=== PATIENT | female | born 1990 | race African-American/Black ===

== ENCOUNTER → 2024-01-29 10:36 | Outpatient (CLI) | payer OTHER, SELFPAY ==
--- NOTE | 2024-01-29 10:39 | DI.CT.S_ITS ---
PROCEDURE: CT SOFT TISSUE NECK W CON INDICATIONS: THROAT PAIN,DYSPHAGIA/THROAT SWELLING TECHNIQUE: After the administration of intravenous contrast, 3.0 mm axial sections acquired from the sella to the aortic arch. Additional oblique axial 3.0 mm sections acquired through the pharynx. 3 mm thick coronal and sagittal reformats were generated. For radiation dose reduction, the following was used: automated exposure control. COMPARISON: None. FINDINGS: Image quality: Excellent. Lymph nodes: No enlarged lymph nodes seen throughout the neck. Vessels: Visualized vasculature appears patent. Neck spaces: The oropharynx, nasopharynx, and pharynx demonstrate no mucosal lesions. The vocal cords, false vocal cords, pyriform sinuses, epiglottis, vallecula, and tongue base all appear normal. Extramucosal spaces appear unremarkable. Glands: The parotid and submandibular glands appear normal. Thyroid gland is unremarkable. Miscellaneous: Visualized brain and orbits appear normal. Lung apices appear clear. Superficial soft tissues appear normal. Bones: No suspicious bony lesions. Visualized sinuses and mastoids appear unremarkable. IMPRESSION: Unremarkable exam. Dictated by: Megan Almeida M.D. on 01/29/2024 at 16:28 Approved by: Megan Almeida M.D. on 01/29/2024 at 16:37
--- NOTE | 2024-01-29 16:12 | ST.SWALLOW ---
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 Pt reported that she noticed swallowing difficulty following facial injections ( cheeks, chin, lips) of botox and filler. Additionally, she had strep throat, gall bladder removal, lymph node infections and COVID, which seemed to maker her swallowing symptoms worsen. She mentioned having Epstien-Nava infection as well . Pt reports her swallowing is weaker and that her throat muscles fatigue easily, needing increased effort to swallow. She described needing multiple swallows per bite in order to get her food down Pt stated she has choked multiple times and now cuts foods into tiny pieces and chews for a long time. She avoids foods like steak, breads, pancakes, etc. Pt reported that ijn addition to her throat muscles fatiguing rapidly, she is experiencing hand skaking and weakness ( My hands do not work anymore). She noted she cannot write well anymore and that her typing is very slow. Subjective Observations Pt was seated in the fluoroscopy chair with directions and procedures described for her. She indicated she understood and agreed to proceed. Patient Positioning Position View Lat-A/P Imaging Lateral View Textures Administered Trials Presented Thin Liquid via Spoon (IDDSI 0 ),Thin Liquid via Cup (IDDSI 0 ),Extremely Thick Liquid via Spoon (IDDSI 4),Soft & Bite- sized (IDDSI,Regular (IDDSI 7) Barium Tablet Yes The IDDSI Framework Protocol: IDDSI.1 Oral Impairment Source: The Modified Barium Swallow Impairment Profile (MBSImP??) Lip Closure No labial escape Tongue Control During Bolus Hold Cohesive bolus between tongue to palatal seal Bolus Preparation/Mastication Timely & efficient chewing & mashing Bolus Transport/Lingual Motion Brisk tongue motion Oral Residue Complete oral clearance Initiation of Pharyngeal Swallow Bolus head in valleculae Additional Oral Impairment Observations *OME indicated natural dentition in good hygiene. Labial, velar and facial structures were noted to be WNL. Lingual protrusion demonstrated muscle fasciculation along lateral edges and the anterior tongue body. At rest, the fasciculation were not observed. Pt noted that although she was able to perform OME movements , she felt that she performed them slower than was normal for her and that it took effort to execute the movements. *DKS was observed to be WNL. *Dentition natural and in good hygiene *Mastication observed with rotary chew pattern. *Good bolus formation, control and AP transition. Pharyngeal Impairment Source: The Modified Barium Swallow Impairment Profile (MBSImP??) Soft Palate Elevation No bolus between soft palate & pharyngeal wall Laryngeal Elevation Comp.sup.move.thyroid cart.w/ comp.approx.arytenoids to epiglot petiole Anterior Hyoid Excursion Complete anterior movement Epiglottic Movement Complete inversion Laryngeal Vestibular Closure Complete; no air/contrast in laryngeal vestibule Pharyngeal Stripping Wave Present - complete Pharyngoesophageal Segment Opening Complete distention & complete duration; no obstruction of flow Tongue Base Retraction No contrast between tongue base & posterior pharyngeal wall Pharyngeal Residue Complete pharyngeal clearance Location Pharyngeal wall Additional Pharyngeal Impairment *Pharyngeal phase of swallow Observations observed to be WNL *Pt reported that after 10 swallow trials, her throat muscles felt exhausted. She further stated that usually, at this point when eating, she will stop eating as it becomes too hard A/P View Textures Administered Trials Presented Thin Liquid via Cup (IDDSI 0) The IDDSI Framework Protocol: IDDSI.1 A/P View Observations Pharyngeal Contraction Complete Esophageal Clearance Upright Position Esophageal retention Esophageal Function Slowed Clearing,Stasis Additional A-P Observations Barium tablet was swallowed and stopped mid chest. Despite several more swallows of water, the tablet remained at mid chest. Thin barium was observed to stop at the tablet with retro flow, then flow past the tablet, which remained at mid chest. After 3 minutes the MBSS was stopped with the barium table remaining in the esophagus. Clinical Impressions Dysphagia Type Esophageal Findings Overall, the pt's swallow appeared to be WFL with the exception of the esophageal phase re: barium tablet. pt reported throat fatigue following 10 swallow trials. Pt demonstrated lingual fasciculation upon protrusion. With her description of swallow fatigue, her hands not working with onset following facial injections, a neurological etiology is suspected. Additionally, pt appears to have narrowing of her esophagus per the tablet remaining in esophagus over 3 minutes. Recommend referrals to GI and Neurology. Patient Appropriate for Therapy No Recommendations Diet Comments no diet changes recommended Treatment Plan Recommended Referrals Neurology,GI Consult
== END ==
PROVIDERS: Referring Provider Otolaryngology; Visit Provider Otolaryngology
DX: R07.0 Pain in throat (principal); R13.19 Other dysphagia; Z86.16 Personal history of COVID-19
CPT/HCPCS: 70491; 74230; 92611; Q9967

== ENCOUNTER → 2024-03-17 16:54 | Outpatient (CLI) | payer OTHER, SELFPAY ==
[2024-03-17 19:27] LABS: Urine N gonorrhoeae NOT DETECTED
[2024-03-17 19:31] LABS: Urine Chlamydia NOT DETECTED
== END ==
PROVIDERS: Visit Provider Student in an Organized Health Care Education/Training Program
DX: A64 Unspecified sexually transmitted disease (principal); R30.0 Dysuria; N89.8 Other specified noninflammatory disorders of vagina
CPT/HCPCS: 87086; 87210; 87491; 87591

== ENCOUNTER → 2024-08-11 16:18 | Outpatient (CLI) | payer OTHER, SELFPAY ==
--- NOTE | 2024-08-11 16:19 | DI.RAD.S_ITS ---
PROCEDURE: XR HAND RT MIN 3V INDICATIONS: jammed R ring finger 8d ago TECHNIQUE: 3 views of the hand(s) acquired. COMPARISON: None. FINDINGS: Bones: No fractures or dislocations. Carpal bones are normally aligned. No suspicious bony lesions. Soft tissues: No suspicious soft tissue calcifications. IMPRESSION: No acute osseous abnormality. If pain persists with conservative management, consider repeat x-ray in 10-14 days or cross-sectional imaging. Dictated by: Ivan Patino M.D. on 08/11/2024 at 16:45 Approved by: Ivan Patino M.D. on 08/11/2024 at 16:48
== END ==
PROVIDERS: Referring Provider Student in an Organized Health Care Education/Training Program; Visit Provider Student in an Organized Health Care Education/Training Program
DX: S63.614A Unspecified sprain of right ring finger, initial encounter (principal); X58.XXXA Exposure to other specified factors, initial encounter
CPT/HCPCS: 73130

== ENCOUNTER → 2025-01-21 11:46 | Outpatient (CLI) | payer OTHER, SELFPAY ==
[2025-01-21 14:20] LABS: Urine N gonorrhoeae NOT DETECTED
[2025-01-21 14:34] LABS: Urine Chlamydia NOT DETECTED
[2025-01-22 15:10] LABS: Hepatitis B Surface Antigen NEGATIVE s/c (NEGATIVE)
[2025-01-22 15:26] LABS: HIV 1 & 2 Ab/Ag 4th Gen Combo NEGATIVE (NEGATIVE); Hep C Virus Ab w/Reflex Quant NEGATIVE s/c (NEGATIVE)
== END ==
PROVIDERS: Referring Provider Nurse Practitioner Family; Visit Provider Nurse Practitioner Family
DX: Z11.3 Encounter for screening for infections with a predominantly sexual mode of transmission (principal); N94.89 Other specified conditions associated with female genital organs and menstrual cycle
CPT/HCPCS: 36415; 86592; 86803; 87210; 87340; 87389; 87491; 87591

== ENCOUNTER → 2025-03-17 08:47 | Outpatient (CLI) | payer OTHER, SELFPAY ==
[2025-03-17 09:18] LABS: Add Manual Diff / Slide Review NO; Hematocrit 37.9 % (36-46); Hemoglobin 12.9 g/dL (12.0-16.0); Lymphocytes Absolute Auto 2000 /uL (1100-4500); Mean Corpuscular HGB Conc 34.0 % (30-36); Mean Corpuscular Hemoglobin 27.5 PG (26-34); Mean Corpuscular Volume 81.1 fL (80-100); Platelet Count 262 X10^3/uL (150-400)
[2025-03-17 09:41] LABS: HEMOLYSIS < 15 (0-50)
[2025-03-17 09:46] LABS: Iron 80 ug/dL (37-170)
[2025-03-17 09:58] LABS: Percent Iron Saturation 22 % (15-50); Total Iron Binding Capacity 370 ug/dL (265-497); Transferrin 305 mg/dL (206-381)
[2025-03-17 10:06] LABS: Vitamin D 25 Hydroxy (D3) 76.4 ng/mL (30.0-100.0)
[2025-03-17 10:23] LABS: Ferritin 21 ng/mL (6-137)
[2025-03-17 17:38] LABS: Vitamin B12 754 pg/mL (239-931)
== END ==
PROVIDERS: Family Provider Nurse Practitioner Family; PCP Nurse Practitioner Family; Referring Provider Nurse Practitioner Family; Visit Provider Nurse Practitioner Family
DX: N92.0 Excessive and frequent menstruation with regular cycle (principal); D64.9 Anemia, unspecified; E55.9 Vitamin D deficiency, unspecified
CPT/HCPCS: 36415; 82306; 82607; 82728; 83540; 83550; 85025